=== PATIENT | female | born 1970 | race Caucasian/White ===

== ENCOUNTER → 2021-11-02 | Outpatient (CLI) | payer OTHER ==
[~2021-11-02] MED LIST: ASPI-1497 MT; ATOR10TA69 MT; CHOL2000 PO
== END | disposition home or self-care (01) ==
LOC: LAB 11:00
PROVIDERS: ATTEND Surgery
DX: Z01.812 Encounter for preprocedural laboratory examination (principal); Z20.822 Contact with and (suspected) exposure to COVID-19
CPT/HCPCS: 87426